=== PATIENT | female | born 1985 | race African-American/Black ===

== ENCOUNTER → 2018-06-18 | Outpatient (CLI) | payer BC | END | disposition home or self-care (01) | LOC: MRI 13:15 | PROVIDERS: ATTEND Obstetrics & Gynecology | DX: D25.1 Intramural leiomyoma of uterus (principal) | CPT/HCPCS: 72195 ==

== ENCOUNTER 2018-10-11 09:55 | Inpatient (IN) | payer BC ==
[~2018-10-11] VITALS: Ht 175.3 cm; Wt 107.1 kg
[2018-10-11] MEDS ORDERED: VASOPRESSIN 20 UNIT/ML 1ML ONE (10:14)
[2018-10-11] MEDS ORDERED: METHYLENE BLUE 50 MG/10 ML AMP IV ONE ×2 (10:15→10:49)
[2018-10-11] MEDS ORDERED: LACTATED RINGERS 1,000 ML IV SCH (11:00)
[2018-10-11 11:35] LABS: BASOPHILS % 0.8 % (0.0-2.0); EOSINOPHILS % 6.8 % (0.0-5.0); HEMATOCRIT. 31.6 % (36.0-48.0); HEMOGLOBIN. 10.1 g/dL (12.0-16.0); LYMPHOCYTES % 32.2 % (20.0-50.0); MEAN CORPUSCULAR HEMOGLOBIN 25.2 pg (28.0-32.0); MEAN CORPUSCULAR VOLUME 78.3 fL (81.0-99.0); MEAN PLATELET VOLUME 8.7 fl (7.4-10.4); MONOCYTES % 8.5 % (2.0-8.0); NEUTROPHILS % 51.7 % (40.0-76.0); PLATELET 203 x1000/uL (130-400); RED BLOOD CELL COUNT 4.03 mill/uL (4.2-5.4); RED CELL DISTRIBUTION WIDTH 23.4 % (11.6-14.6)
[2018-10-11 11:41] LABS: CLARITY URINE CLEAR (CLEAR); COLOR URINE YELLOW (YELLOW); KETONES URINE TRACE (NEGATIVE); LEUKOCYTE ESTERASE URINE NEGATIVE (NEGATIVE); NITRITE URINE NEGATIVE (NEGATIVE); OCCULT BLOOD URINE NEGATIVE (NEGATIVE); PROTEIN URINE NEGATIVE (NEGATIVE); SPECIFIC GRAVITY URINE 1.024 (1.005-1.030); UROBILINOGEN URINE 0.2 E.U./dL (0.2-1.0)
[2018-10-11 11:41] LABS: CHLORIDE 108 mEq/L (98-107)
[2018-10-11 11:44] LABS: PARTIAL THROMBOPLASTIN TIME 25.9 sec (23.4-31.0); PROTHROMBIN TIME 10.7 sec (9.6-11.0)
[2018-10-11 11:47] LABS: HCG SCREEN NEGATIVE
[2018-10-11 12:08] LABS: PLATELET ESTIMATE NORMAL
[2018-10-11] MEDS ORDERED: FERR325T6 PO (12:12)
[2018-10-11] MEDS ORDERED: ALBU18HF2 IH (12:12)
[2018-10-11] MEDS ORDERED: DEXAMETHASONE 4MG/ML 1ML VIAL ONE (13:26)
[2018-10-11] MEDS ORDERED: SUCCINYLCHOLINE CHLORIDE 200MG/10ML IV ONE (13:26)
[2018-10-11] MEDS ORDERED: NEOSTIGMINE METHYLSULFATE 1MG/ML 10 ML VIAL ONE (13:26)
[2018-10-11] MEDS ORDERED: LIDOCAINE HCL/PF 1% 10 MG/ML 5ML VIAL ONE (13:26)
[2018-10-11] MEDS ORDERED: ROCURONIUM BROMIDE 10MG/ML VIAL 5ML IV ONE (13:26)
[2018-10-11] MEDS ORDERED: CEFAZOLIN SODIUM 1000MG/VIAL ONE (13:26)
[2018-10-11] MEDS ORDERED: GLYCOPYRROLATE 0.2 MG/ML 2ML VIAL ONE (13:26)
[2018-10-11] MEDS ORDERED: SODIUM CHLORIDE 0.9% 10ML VIAL ONE (13:26)
[2018-10-11] MEDS ORDERED: FENTANYL CITRATE/PF 50MCG/ML 2ML VIAL ONE ×3 (13:26→15:20)
[2018-10-11] MEDS ORDERED: MIDAZOLAM HCL 2 MG/2 ML VIAL ONE (13:26)
[2018-10-11] MEDS ORDERED: ONDANSETRON HCL 4MG/2ML INJ ONE (13:27)
[2018-10-11] MEDS ORDERED: METOCLOPRAMIDE HCL 10MG/2ML VIAL ONE (13:27)
[2018-10-11] MEDS ORDERED: PROPOFOL 200MG/20ML VIAL IV ONE (13:30)
[2018-10-11] MEDS ORDERED: ONDANSETRON HCL 4MG/2ML INJ IV PRN ×2 (16:00→18:30)
[2018-10-11] MEDS ORDERED: MEPERIDINE HCL/PF 25MG/ML CPJ IV PRN (16:00)
[2018-10-11] MEDS ORDERED: HYDROMORPHONE HCL/PF 2MG/ML CPJ IV PRN (16:00)
[2018-10-11] MEDS ORDERED: MORPHINE SULFATE 4 MG/ML CPJ (NOT FOR IM USE) IV PRN (16:00)
[2018-10-11] MEDS ORDERED: SODIUM CHLORIDE 0.9% 1,000 ML IV NR (16:08)
[2018-10-11 20:00] VITALS: BP 106/55
[2018-10-11] MEDS: HYDROMORPHONE HCL/PF 2MG/ML CPJ IV PRN (20:57)
[2018-10-11 21:03] LABS: HEMATOCRIT 29.1 % (36.0-48.0); MEAN CORPUSCULAR HEMOGLOBIN 24.9 pg (28.0-32.0); MEAN CORPUSCULAR VOLUME 80.7 fL (81.0-99.0); PLATELET 235 x1000/uL (130-400); RED BLOOD CELL COUNT 3.61 mill/uL (4.2-5.4); RED CELL DISTRIBUTION WIDTH 22.6 % (11.6-14.6)
[2018-10-11] MEDS: LACTATED RINGERS 1,000 ML IV SCH (23:23)
[2018-10-12] VITALS (7 sets, daily range): BP systolic 99–111; BP diastolic 42–61
[2018-10-12] MEDS: HYDROMORPHONE HCL/PF 2MG/ML CPJ IV PRN ×3 (03:30→21:18)
[2018-10-12 06:00] LABS: HEMOGLOBIN 7.2 g/dL (12.0-16.0); MEAN CORPUSCULAR HEMOGLOBIN 25.9 pg (28.0-32.0); MEAN CORPUSCULAR VOLUME 79.4 fL (81.0-99.0); PLATELET 195 x1000/uL (130-400); RED BLOOD CELL COUNT 2.77 mill/uL (4.2-5.4); RED CELL DISTRIBUTION WIDTH 22.5 % (11.6-14.6)
[2018-10-12] MEDS: LACTATED RINGERS 1,000 ML IV SCH ×2 (06:24→13:29)
[2018-10-12] MEDS ORDERED: IBUPROFEN 800MG TABLET PO PRN (10:45)
[2018-10-12] MEDS ORDERED: HYDROCODONE/ACETAMINOPHEN 5/325MG TABLET PO PRN (10:45)
[2018-10-12 12:30] LABS: BASOPHILS % 0.1 % (0.0-2.0); EOSINOPHILS % 0.1 % (0.0-5.0); HEMATOCRIT. 21.5 % (36.0-48.0); LYMPHOCYTES % 14.7 % (20.0-50.0); MEAN CORPUSCULAR HEMOGLOBIN 25.2 pg (28.0-32.0); MEAN CORPUSCULAR VOLUME 80.1 fL (81.0-99.0); MEAN PLATELET VOLUME 9.5 fl (7.4-10.4); MONOCYTES % 9.7 % (2.0-8.0); NEUTROPHILS % 75.4 % (40.0-76.0); PLATELET 177 x1000/uL (130-400); RED BLOOD CELL COUNT 2.68 mill/uL (4.2-5.4); RED CELL DISTRIBUTION WIDTH 22.9 % (11.6-14.6)
[2018-10-12 12:44] LABS: HEMOGLOBIN. 6.8 g/dL (12.0-16.0)
[2018-10-13] VITALS (7 sets, daily range): BP systolic 103–124; BP diastolic 43–68
[2018-10-13] MEDS: LACTATED RINGERS 1,000 ML IV SCH ×4 (01:38→17:50)
[2018-10-13] MEDS: HYDROCODONE/ACETAMINOPHEN 5/325MG TABLET PO PRN ×3 (01:42→15:45)
[2018-10-13] MEDS: FERROUS SULFATE 325MG TABLET PO SCH ×2 (11:34→17:50)
[2018-10-13] MEDS ORDERED: SIMETHICONE 80MG TABLET CHEW PO PRN (12:00)
[2018-10-13] MEDS ORDERED: ALBUTEROL (0.083%) 2.5MG/3ML NEB ONE (12:03)
[2018-10-13] MEDS: ALBUTEROL (0.5%) 2.5MG/0.5ML NEB HHN SCH ×3 (12:06→21:05)
[2018-10-14] VITALS: BP 122/58
[2018-10-14] MEDS: ALBUTEROL (0.5%) 2.5MG/0.5ML NEB HHN SCH ×3 (00:18→09:12)
[2018-10-14] MEDS: HYDROMORPHONE HCL/PF 2MG/ML CPJ IV PRN (02:10)
[2018-10-14] MEDS: LACTATED RINGERS 1,000 ML IV SCH (02:10)
[2018-10-14 04:00] VITALS: BP 117/70
[2018-10-14 08:00] VITALS: BP 126/72
[2018-10-14] MEDS: HYDROCODONE/ACETAMINOPHEN 5/325MG TABLET PO PRN ×2 (08:55→09:20)
[2018-10-14] MEDS ORDERED: ALBUTEROL (0.083%) 2.5MG/3ML NEB ONE ×2 (09:07→12:44)
[2018-10-14] MEDS: FERROUS SULFATE 325MG TABLET PO SCH (09:20)
[2018-10-14 11:44] VITALS: BP 120/69
== END 2018-10-14 12:24 | disposition home or self-care (01) | DRG 742 ==
LOC: OR 09:55 → 6EST 18:13
PROVIDERS: ADMIT Obstetrics & Gynecology; ATTEND Obstetrics & Gynecology
PROC: 0UB90ZZ Excision of Uterus, Open Approach (ICD-10-PCS; principal; 2018-10-11)
DX: D25.9 Leiomyoma of uterus, unspecified (principal); D62 Acute posthemorrhagic anemia; N83.292 Other ovarian cyst, left side
CPT/HCPCS: 36415; 80048; 84703; 85027; 86850; 86900; 86920; 88307; 94640; C1893; J0330; J0690; J1100; J1170; J2250; J2405; J2704; J2710; J2765; J3010; J3490; J7120; J7611; Q9968

== ENCOUNTER 2018-10-24 13:02 | Emergency (ER) | payer BC ==
[~2018-10-24] VITALS: Ht 175.3 cm; Wt 104.5 kg
[~2018-10-24 13:02] MED LIST: ALBU18HF2 IH; FERR325T6 PO
[2018-10-24] MEDS ORDERED: CEPHALEXIN 250MG CAPSULE PO ONE (15:30)
[2018-10-24 15:57] VITALS: BP 120/78
== END 2018-10-24 16:15 | disposition home or self-care (01) ==
LOC: ER 13:02
DX: T81.30XA Disruption of wound, unspecified, initial encounter (principal); Y83.8 Other surgical procedures as the cause of abnormal reaction of the patient, or of later complication, without mention of misadventure at the time of the procedure; Y92.9 Unspecified place or not applicable; Z90.49 Acquired absence of other specified parts of digestive tract; Z98.890 Other specified postprocedural states
CPT/HCPCS: 99283

== ENCOUNTER 2020-04-20 05:55 | Emergency (ER) | payer BC ==
[~2020-04-20] VITALS: Ht 175.3 cm; Wt 111.0 kg
[2020-04-20] MEDS ORDERED: SODIUM CHLORIDE 0.9% 1,000 ML IV ONE (08:00)
[2020-04-20 08:10] LABS: BASOPHILS % 0.2 % (0.0-2.0); CHLORIDE 105 mEq/L (98-107); EOSINOPHILS % 4.9 % (0.0-5.0); HEMATOCRIT. 37.6 % (36.0-48.0); HEMOGLOBIN. 12.1 g/dL (12.0-16.0); LYMPHOCYTES % 12.1 % (20.0-50.0); MEAN CORPUSCULAR HEMOGLOBIN 24.5 pg (28.0-32.0); MEAN PLATELET VOLUME 9.7 fl (7.4-10.4); MONOCYTES % 6.6 % (2.0-8.0); NEUTROPHILS % 76.2 % (40.0-76.0); PLATELET 231 x1000/uL (130-400); RED BLOOD CELL COUNT 4.94 mill/uL (4.2-5.4); RED CELL DISTRIBUTION WIDTH 17.4 % (11.6-14.6)
[2020-04-20 08:28] LABS: CLARITY URINE CLOUDY (CLEAR); KETONES URINE TRACE (NEGATIVE); LEUKOCYTE ESTERASE URINE 1+ (NEGATIVE); NITRITE URINE NEGATIVE (NEGATIVE); OCCULT BLOOD URINE 3+ (NEGATIVE); PROTEIN URINE 2+ (NEGATIVE); SPECIFIC GRAVITY URINE 1.026 (1.005-1.030)
[2020-04-20 08:31] LABS: COLOR URINE BLOODY (YELLOW)
[2020-04-20 08:33] LABS: B-HCG QUANTITATIVE 76442 mIU/mL (<3)
[2020-04-20 10:08] VITALS: BP 147/81
== END 2020-04-20 10:35 | disposition home or self-care (01) ==
LOC: ER 05:55
DX: O23.41 Unspecified infection of urinary tract in pregnancy, first trimester (principal); O03.9 Complete or unspecified spontaneous abortion without complication; O99.511 Diseases of the respiratory system complicating pregnancy, first trimester; J45.909 Unspecified asthma, uncomplicated; O26.891 Other specified pregnancy related conditions, first trimester; Z98.890 Other specified postprocedural states; Z3A.13 13 weeks gestation of pregnancy
CPT/HCPCS: 36415; 76801; 76802; 76817; 80053; 81003; 81025; 84702; 85025; 86850; 86900; 86901; 99284; J7030

== ENCOUNTER 2020-05-23 03:56 | Emergency (ER) | payer BC ==
[~2020-05-23] VITALS: Ht 175.3 cm; Wt 109.0 kg
[2020-05-23 04:01] VITALS: BP 130/89
[2020-05-23 06:08] LABS: CLARITY URINE CLOUDY (CLEAR); COLOR URINE YELLOW (YELLOW); KETONES URINE NEGATIVE (NEGATIVE); LEUKOCYTE ESTERASE URINE 1+ (NEGATIVE); NITRITE URINE NEGATIVE (NEGATIVE); OCCULT BLOOD URINE NEGATIVE (NEGATIVE); PH URINE 7.5 (4.5-8.0); PROTEIN URINE NEGATIVE (NEGATIVE); SPECIFIC GRAVITY URINE 1.021 (1.005-1.030); UROBILINOGEN URINE 0.2 E.U./dL (0.2-1.0)
== END 2020-05-23 07:25 | disposition home or self-care (01) ==
LOC: ER 03:56
DX: O23.31 Infections of other parts of urinary tract in pregnancy, first trimester (principal); Z3A.00 Weeks of gestation of pregnancy not specified; O99.511 Diseases of the respiratory system complicating pregnancy, first trimester
CPT/HCPCS: 76815; 81003; 81025; 99284